=== PATIENT | female | born 1940 | race Caucasian/White ===

== ENCOUNTER 2019-09-14 19:25 | Emergency (ER) | payer MEDICARE ==
[~2019-09-14] VITALS: Ht 167.6 cm; Wt 75.0 kg
[2019-09-14 19:28] VITALS: Ht 167.6 cm; Wt 75.0 kg
[2019-09-14 20:28] VITALS: BP 145/70
== END 2019-09-14 20:25 | disposition home or self-care (01) ==
LOC: D.ER 19:25
DX: K22.2 Esophageal obstruction (principal); R09.89 Other specified symptoms and signs involving the circulatory and respiratory systems

== ENCOUNTER 2019-11-30 05:44 | Day surgery (SDC) | payer MEDICARE ==
[~2019-11-30] VITALS: Ht 160 cm; Wt 67.7 kg
--- NOTE | ~2019-11-30 | OP ---
PATIENT NAME: NARESH GALLARDO MEDICAL RECORD: [id number] LOCATION:[facility] ADMISSION DATE: SURGEON: COOKIE NIXON MD DATE OF OPERATION: 11/30/2019 PROCEDURE: EGD with biopsy. STREET SPRINKLER: Cookie Nixon MD SCOPE: Olympus video gastroscope. MEDICATIONS: Per TIVA anesthesia. The patient received 150 mg of propofol for this procedure, O2 4 liters. She is an ASA class 3. INDICATION FOR THE PROCEDURE: Documentation of healing of a distal esophageal ulcer without bleeding and evaluation of a cricopharyngeal narrowing with a history of dysphagia. HISTORY AND PHYSICAL: Ms. Gallardo is a very pleasant 79-year-old lady well known to me with a history of breast cancer, non-Hodgkin's lymphoma and Graves' disease status post thyroidectomy and on thyroid replacement. She had an EGD approximately 2 months ago, which was significant for a distal Schatzki's ring, which was dilated to 60 [place] during the procedure. She also was noted to have distal esophageal ulcers and was placed on omeprazole at a dose of 20 mg p.o. b.i.d. Other findings were inflammation in the gastric area, most pronounced in the antrum, cold biopsy and histopathology biopsies were obtained, which were negative and additionally she had some mild duodenitis. She had complained in the past of a cricopharyngeal area of dysphagia and we noted a narrowing at this previous procedure. We are bringing her back for her repeat EGD today at [facility] with the intention of dilating the cricopharyngeal narrowing with Savary dilators, which will be used sequentially. Prior to the procedure; however, the patient tells me that she is not noticing any narrowing in this area and is able to swallow through the upper esophageal sphincter without any difficulty. FINDINGS AND DESCRIPTION OF PROCEDURE: Informed consent was given. The patient was made comfortable with the above medications. After reaching an adequate level of sedation by slow IV push, the patient was positioned on her left side and Hurricaine spray was used to further numb the distal pharyngeal area. We then advanced the scope slowly and carefully through the cricopharyngeal area where we did notice some narrowing and proceeded through this area without any difficulty. On reaching the distal esophagus, it was noted that the distal esophageal area ulcers have completely healed and the patient did not have any lower esophageal sphincter narrowing and this was likely due to a successful dilatation 2 months ago. On entering the stomach, the cardia and fundus appeared to have fairly normal tissue as well as the stomach body. We did advance to the antral area where some mild inflammation was appreciated and a biopsy was obtained looking for the presence of Helicobacter pylori as well as histopathology. The duodenal bulb had mild inflammation and the second portion had moderate inflammation and a biopsy was obtained. We then started to withdraw the scope with the idea of placing a wire in the stomach and then we would sequentially place Savary dilators until the area was completely dilated. When we reached the upper esophageal sphincter; however, there was a superficial tear and since the patient was no longer complaining of any dysphagia in this area we elected not to go ahead and dilate. The tear was probably due to again OPERATIVE REPORT [id number] NARESH GALLARDO dilating this area with the scope with our passage through the upper esophageal sphincter to the distal esophagus. As the patient is asymptomatic and it appears that the area is now adequate and no significant stricture is remaining, we have elected not to proceed with Savary dilatation today, especially in light of this superficial tear. The scope was then completely withdrawn. IMPRESSION: 1. The patient presenting for an EGD with the intention of dilating the cricopharyngeal area. 2. Another reason for this procedure is to document healing of the distal esophageal ulcers. 3. The patient is telling me she no longer has oropharyngeal dysphagia and we did dilate the area of the cricopharyngeus gently with the scope, but there is a small superficial tear. We elected at this point not to proceed with Savary dilatation. 4. Healed distal esophageal ulcers with normal tissue in this area. 5. The patient has no distal esophageal stricture that could be appreciated. 6. Small hiatal hernia. 7. Mild gastritis, biopsy taken at the antral area. 8. Mild duodenitis, biopsy taken at the second portion of the duodenum. PLAN: 1. We will ask the patient to stop the second dose of omeprazole and just continue her omeprazole at a dose of 20 mg p.o. every day. She can take this morning or night. 2. Reflux precautions should be followed. The patient should avoid chocolate, tomato, citrus, caffeine, fatty foods, peppermint only if they bother her. She should not eat late at night and if symptomatic sleep with the head of the bed elevated. She should sit up for 2 hours after every meal. 3. Caution with anti-inflammatory drugs for the next 14 days. 4. We are available if the patient should need us and if she in the future has any difficulty with dysphagia whether oropharyngeal or distal esophageal. TRANSINT:[id number] Voice Confirmation ID: [id number] DOCUMENT ID: [id number] COOKIE NIXON MD CC: ANNA SHEPPARD MD [id number] DICTATION DATE: 11/30/19808 [place] APPRENTICE: 11/30/19 1146 [facility] [place] 11/30/19 [facility] [address] [place] [address]
[2019-11-30] MEDS ORDERED: OMEPRAZOLE20 M1 PO (06:28)
[2019-11-30] MEDS ORDERED: TIROSINT88 MCG PO (06:28)
[2019-11-30] MEDS ORDERED: XANAX0.5 MG PO (06:29)
[2019-11-30] MEDS ORDERED: JUICE PLUS (06:30)
[2019-11-30] MEDS ORDERED: VITAMIN D1000 UNIT PO (06:30)
[2019-11-30] MEDS ORDERED: CALCIUM 600 +1 EAC3 PO (06:30)
[2019-11-30] MEDS ORDERED: GALZIN25 MG PO (06:31)
[2019-11-30] MEDS ORDERED: PROBIOTIC1 EAC1 PO (06:31)
[2019-11-30] MEDS ORDERED: FLURAZEPAM HCL30 M1 PO (06:32)
[2019-11-30 06:38] LABS: HEMATOCRIT 42.3 % (36.0-48.0); HEMOGLOBIN 14.5 g/dL (12-16); MCH 30.3 pg (26.0-34.0); MCHC 34.3 g/dL (31.0-37.0); MCV 88.3 fL (80.0-100.0); MEAN PLATELET VOLUME 10.1 fL (7.4-10.4); PLATELET COUNT 161 10x3/uL (130-400); RBC 4.79 10x6/uL (4.00-5.40); RDW 12.6 % (11.5-14.5); WBC 2.9 10x3/uL (4.8-10.8)
[2019-11-30 06:43] VITALS: BP 147/100; Ht 160 cm; Wt 67.7 kg
[2019-11-30 06:44] LABS: BASOPHILS 1 % (0-2); EOSINOPHILS 3 % (0-7); LYMPHOCYTES 33 % (15-50); MONOCYTES 2 % (2-11); NEUTROPHILS 61 % (40-80); PLATELET ESTIMATE NORMAL
[2019-11-30 06:57] LABS: APTT 25.8 SECONDS (22.8-39.4); INR 0.96 (0.85-1.17); PROTIME 12.7 SECONDS (11.6-15.0)
== END 2019-11-30 09:04 | disposition home or self-care (01) ==
LOC: D.OPS 05:44
PROVIDERS: Anesthesiology; ATTEND Internal Medicine Gastroenterology
DX: R13.10 Dysphagia, unspecified (principal); R12 Heartburn; Z86.010 Personal history of colon polyps; E05.00 Thyrotoxicosis with diffuse goiter without thyrotoxic crisis or storm; Z85.72 Personal history of non-Hodgkin lymphomas; E07.9 Disorder of thyroid, unspecified